=== PATIENT | female | born 1985 | race Caucasian/White ===

== ENCOUNTER 2021-01-25 09:20 | Emergency (ER) | payer OTHER ==
[~2021-01-25] VITALS: Ht 165.1 cm; Wt 61.7 kg
[2021-01-25 09:29] VITALS: BP 117/74
--- NOTE | 2021-01-25 09:40 | NUR ---
36 Y/O F BIB SELF FROM HOME, PATIENT PRESENTS TO ED WITH SORE THROAT, COUGH, CHILLS, CHEST CONGESTION, SOB AND CP WITH COUGH EXERTION FOR 6 DAYS. DENIES N/V/D; SKIN IS PINK/WARM/DRY; AAOX4 WITH EVEN AND STEADY GAIT; LUNGS CRACKLING BL; HR EVEN AND REGULAR; PATIENT STATES PAIN OF 6/10 AT THIS TIME, CP WITH COUGH; VSS; PATIENT POSITIONED FOR COMFORT; HOB ELEVATED; BEDRAILS UP X2; BED DOWN. ER MD MADE AWARE OF PT STATUS. PMH: AUTOIMMUNE DISORDER ALLERGY: GABAPENTIN (SWELLING) MED: MOTRIN, LOYDA
[2021-01-25] MEDS ORDERED: BENZ200C4 PO (12:18)
[2021-01-25] MEDS ORDERED: PROM118S5 PO (12:18)
[2021-01-25 12:31] VITALS: BP 110/67
--- NOTE | 2021-01-25 12:31 | NUR ---
Patient discharged with v/s stable. Written and verbal after care instructions ABOUT ACUTE BRONCHITIS given and explained. Patient alert, oriented and verbalized understanding of instructions. Ambulatory with steady gait. All questions addressed prior to discharge. ID band removed. Patient advised to follow up with PMD. Rx of PROMETHAZINE DM SYRUP given. Patient educated on indication of medication including possible reaction and side effects. Opportunity to ask questions provided and answered.
== END 2021-01-25 12:31 | disposition home or self-care (01) ==
LOC: MED 09:20
DX: J06.9 Acute upper respiratory infection, unspecified (principal); J40 Bronchitis, not specified as acute or chronic; Z20.822 Contact with and (suspected) exposure to COVID-19; Z79.899 Other long term (current) drug therapy
CPT/HCPCS: 71045; 99284; Q0092; U0003